=== PATIENT | male | born 1955 | race Caucasian/White ===

== ENCOUNTER 2016-12-16 09:55 | Emergency (ER) | payer OTHER ==
[~2016-12-16] VITALS: Ht 185.4 cm; Wt 97.5 kg
--- NOTE | 2016-12-16 11:16 | Emergency Room Report ---
History of Present Illness General Chief Complaint: Lower Extremity Injury Source: Patient Present Illness HPI This patient states that he was working at [employer] and fell onto his right rogel. He states he has soreness on his right rogel but did not suffer a laceration or injury. He has an old abrasion from a different day. He has no other injuries or complaints. Allergies: Coded Allergies: No Known Allergies (Unverified , 12/16/16) Patient History Past Medical History: see triage record, other - Bladder CA Social History: Denies: alcohol use, drug use, smoking Reviewed Nursing Documentation: PMH: Agreed, PSxH: Agreed Nursing Documentation-PMH Hx Cancer: Yes - Bladder 2014 Review of Systems All Other Systems: negative except mentioned in HPI Physical Exam Vital Signs Date Time Temp Pulse Resp B/P Pulse Ox O2 Delivery O2 Flow Rate FiO2 12/16/16 09:58 98.4 75 18 96 [id number] EP Interpretation: reviewed, normal General Appearance: no apparent distress, alert, GCS 15, non-toxic Head: normocephalic, atraumatic Eyes: bilateral eye PERRL, bilateral eye normal inspection ENT: hearing grossly normal, normal pharynx, no angioedema, normal voice Neck: full range of motion Respiratory: no respiratory distress, no retraction, no accessory muscle use, speaking full sentences Cardiovascular #1: no edema Rectal: deferred Musculoskeletal: back normal, gait/station normal, normal range of motion, other - Mild tenderness to palpation of the anterior and lateral rogel. No ecchymoses. Old healing abrasion medial rogel. Neurologic: alert, oriented x3, responsive, motor strength/tone normal, sensory intact, speech normal Psychiatric: judgement/insight normal, memory normal, mood/affect normal, no suicidal/homicidal ideation Skin: normal color, no rash, warm/dry, well hydrated Medical Decision Making Diagnostic Impression: Primary Impression: Contusion ER Course This patient has clinical exam findings consistent with a soft tissue contusion. There is no bony tenderness and therefore do not feel this patient needed imaging. There is no new laceration or abrasion. He does have an old healing abrasion that is healing appropriately. No emergency medical condition was identified. Anticipate return to full duty. Patient given return precautions and followup instructions. Last Vital Signs Date Time Temp Pulse Resp B/P Pulse Ox O2 Delivery O2 Flow Rate FiO2 12/16/16 09:58 98.4 75 18 96 Disposition: HOME, SELF-CARE Condition: Improved Referrals: NON PHYSICIAN (PCP) EVA BRIAN D.O. December 16, 2016 11:15
[2016-12-16 11:48] VITALS: BP 144/86
== END 2016-12-16 11:51 | disposition home or self-care (01) ==
LOC: EMR 10:42
DX: S80.11XA Contusion of right lower leg, initial encounter (principal); W20.8XXA Other cause of strike by thrown, projected or falling object, initial encounter; Y92.63 Factory as the place of occurrence of the external cause; Y99.0 Civilian activity done for income or pay
CPT/HCPCS: 99282